=== PATIENT | male | born 1960 | race Caucasian/White ===

== ENCOUNTER 2017-06-29 12:26 | Inpatient (IN) ==
[2017-06-29] MEDS ORDERED: M.V.I.-12 10 ML, FOLIC ACID 1 MG, MAGNESIUM SULFATE 1 GM, THIAMINE 100 MG in NS 1,000 ML IV ONE (13:23)
[2017-06-29] MEDS ORDERED: ATIVAN IV ONE ×3 (13:23→17:25)
[2017-06-29 14:23] LABS: MANUAL DIFF NEEDED? NO
[2017-06-29 14:38] LABS: BASO% 0.2 % (0.0-0.8); HEMATOCRIT 45.4 % (42.0-52.0); HEMOGLOBIN 16.2 g/dL (14.0-18.0); IMM GRAN# 0.03 X1000 (0.0-0.04); IMM GRAN% 0.4 % (0.0-0.5); LYMPH# 0.82 X1000 (1.2-3.4); LYMPH% 10.2 % (20.5-51.1); MCH 35.7 PG (27-31); MCHC 35.7 g/dL (33-37); MONO# 0.46 X1000 (0.11-0.59); MONO% 5.7 % (1.7-9.3); MPV 9.9 FL (7.4-10.4); NEUT% 83.5 % (42.2-75.2); PLT 209 X1000 (130-400); RBC 4.54 XMIL (4.7-6.1)
[2017-06-29 14:47] LABS: UR AMPHETAMINES QUAL NONE DETECTED (NONE DETECT); UR BARBITUATES QUAL NONE DETECTED (NONE DETECT); UR BENZODIAZEPIN QUAL NONE DETECTED (NONE DETECT); UR CANNABINOIDS QUAL NONE DETECTED (NONE DETECT); UR COCAINE QUAL NONE DETECTED (NONE DETECT); UR METHADONE QUAL NONE DETECTED (NONE DETECT); UR OPIATES QUAL NONE DETECTED (NONE DETECT); UR OXYCODONE QUAL NONE DETECTED (NONE DETECT); UR PCP QUAL NONE DETECTED (NONE DETECT)
[2017-06-29 14:48] LABS: AGAP 16; ALBUMIN 4.6 g/dL (3.5-5.0); ALKALINE PHOSPHATASE 60 U/L (32-122); BUN 8 mg/dL (8-22); CHLORIDE 96 mmol/L (98-107); COSMO 274; GOT 146 U/L (10-34); GPT 122 U/L (10-44); POTASSIUM 3.7 mmol/L (3.5-5.1); SODIUM 138 mmol/L (136-145); TCO2 26 mmol/L (25-35); TOTAL BILIRUBIN 0.81 mg/dL (0.20-1.00); TOTAL PROTEIN 7.9 g/dL (6.3-8.3)
[2017-06-29] MEDS ORDERED: LIBRIUM PO ONE (20:26)
[2017-06-29] MEDS ORDERED: VALIUM IV ONE ×2 (20:26→20:47)
[2017-06-29] MEDS ORDERED: SODIUM CHLORIDE 0.9% INJ ONE (22:25)
[2017-06-29] MEDS ORDERED: TYLENOL PO PRN (22:25)
[2017-06-29] MEDS ORDERED: NICODERM PATCH TD ONE (22:25)
[2017-06-29] MEDS: VALIUM IV PRN ×2 (22:38→23:59)
[2017-06-29 22:51] LABS: INR 1.02; PROTIME 10.7 Seconds (9.2-11.7)
[2017-06-29] MEDS: LOVENOX SUBQ SCH (23:06)
[2017-06-29] MEDS: LIORESAL PO SCH (23:06)
[2017-06-29] MEDS: POTASSIUM CHLORIDE 10 MEQ in NS 1,000 ML IV SCH (23:07)
[2017-06-29] MEDS: THERA M PLUS PO SCH (23:07)
[2017-06-30] MEDS: LIBRIUM PO SCH ×4 (02:05→19:22)
[2017-06-30] MEDS: VALIUM IV PRN ×13 (02:07→23:20)
[2017-06-30] MEDS: ZOFRAN IV PRN ×3 (02:31→20:15)
[2017-06-30 04:28] LABS: MANUAL DIFF NEEDED? NO
[2017-06-30 04:41] LABS: HEMATOCRIT 46.4 % (42.0-52.0); HEMOGLOBIN 16.5 g/dL (14.0-18.0); LYMPH# 1.73 X1000 (1.2-3.4); LYMPH% 34.7 % (20.5-51.1); MCH 36.3 PG (27-31); MCHC 35.6 g/dL (33-37); MPV 9.9 FL (7.4-10.4); NEUT% 57.3 % (42.2-75.2); PLT 140 X1000 (130-400); RBC 4.55 XMIL (4.7-6.1)
[2017-06-30] MEDS: POTASSIUM CHLORIDE 10 MEQ in NS 1,000 ML IV SCH (04:44)
[2017-06-30 04:48] LABS: AGAP 14; ALBUMIN 4.1 g/dL (3.5-5.0); ALKALINE PHOSPHATASE 56 U/L (32-122); BUN 8 mg/dL (8-22); CALCIUM 8.2 mg/dL (8.8-10.2); CHLORIDE 99 mmol/L (98-107); COSMO 275; GOT 107 U/L (10-34); GPT 93 U/L (10-44); MAGNESIUM 2.1 mg/dL (1.5-2.7); POTASSIUM 3.2 mmol/L (3.5-5.1); SODIUM 139 mmol/L (136-145); TCO2 26 mmol/L (25-35); TOTAL BILIRUBIN 0.95 mg/dL (0.20-1.00); TOTAL PROTEIN 6.9 g/dL (6.3-8.3)
[2017-06-30] MEDS: LIORESAL PO SCH ×2 (08:00→20:12)
[2017-06-30] MEDS: THERA M PLUS PO SCH ×2 (08:00→20:12)
[2017-06-30] MEDS: PROTONIX IV SCH (08:12)
[2017-06-30] MEDS ORDERED: SODIUM PHOSPHATE 40 MMOL in NS 250 ML IV ONE (08:22)
[2017-06-30] MEDS ORDERED: POTASSIUM CHLORIDE 60 MEQ in NS 500 ML IV ONE (08:25)
[2017-06-30] MEDS ORDERED: POTASSIUM CHLORIDE 20% LIQUID PO ONE (08:43)
[2017-06-30] MEDS ORDERED: THIAMINE IM SCH (09:00)
[2017-06-30] MEDS ORDERED: NEUTRA-PHOS PO ONE (09:12)
[2017-06-30 09:22] LABS: MAGNESIUM 1.9 mg/dL (1.5-2.7)
[2017-06-30] MEDS: NS 1,000 ML IV SCH ×3 (09:45→23:18)
[2017-06-30] MEDS: SYNTHROID PO SCH (09:46)
[2017-06-30] MEDS: SEROQUEL PO SCH ×3 (09:46→20:12)
[2017-06-30] MEDS: THIAMINE 100 MG in NS 50 ML IV SCH (09:52)
[2017-06-30] MEDS ORDERED: SUBOXONE 8 MG/2 MG SL ONE (10:11)
[2017-06-30] MEDS: NEUTRA-PHOS PO SCH ×3 (13:26→20:13)
[2017-06-30] MEDS: SUBOXONE 8 MG/2 MG SL SCH ×2 (14:51→20:13)
[2017-06-30] MEDS: LOVENOX SUBQ SCH (23:18)
[2017-07-01] MEDS: VALIUM IV PRN ×4 (00:20→21:09)
[2017-07-01] MEDS ORDERED: PHENOBARBITAL IV PRN (00:32)
[2017-07-01] MEDS ORDERED: VALIUM IV ONE (00:32)
[2017-07-01] MEDS: PHENOBARBITAL IV PRN ×2 (00:52→05:29)
[2017-07-01] MEDS: LIBRIUM PO SCH ×4 (02:01→19:57)
[2017-07-01 04:58] LABS: URINE CULTURE NEEDED? NO; URINE MICRO REVIEW NEEDED? NO; URINE SOURCE CATH
[2017-07-01 05:07] LABS: BILIRUBIN URINE NEGATIVE (NEGATIVE); BLOOD URINE NEGATIVE (NEGATIVE); COLOR YELLOW; GLUCOSE URINE NEGATIVE (NEGATIVE); LEUKOCYTES URINE NEGATIVE (NEGATIVE); NITRITE URINE NEGATIVE (NEGATIVE); PH URINE 6.5; PROTEIN URINE NEGATIVE (NEGATIVE); SP GRAVITY URINE 1.009; TURBIDITY URINE CLEAR (CLEAR); UROBILINOGEN URINE NORMAL (NORMAL)
[2017-07-01 05:09] LABS: UR EPITHELIAL CELLS <10 /HPF (<10); URINE BACTERIA NEGATIVE /HPF; URINE RBC <10 /HPF (<10); URINE WBC <10 /HPF (<10)
[2017-07-01] MEDS: NS 1,000 ML IV SCH ×3 (05:34→19:56)
[2017-07-01 05:42] LABS: ALBUMIN 3.3 g/dL (3.5-5.0); ALKALINE PHOSPHATASE 50 U/L (32-122); DIRECT BILIRUBIN < 0.20 mg/dL (0.00-0.20); GOT 73 U/L (10-34); GPT 71 U/L (10-44); MAGNESIUM 1.8 mg/dL (1.5-2.7); TOTAL BILIRUBIN 0.43 mg/dL (0.20-1.00); TOTAL PROTEIN 5.8 g/dL (6.3-8.3)
[2017-07-01] MEDS: SEROQUEL PO SCH ×3 (08:05→21:00)
[2017-07-01] MEDS: SYNTHROID PO SCH (08:05)
[2017-07-01] MEDS: THERA M PLUS PO SCH ×2 (08:05→21:00)
[2017-07-01] MEDS: LIORESAL PO SCH ×4 (08:06→17:30)
[2017-07-01] MEDS: NEUTRA-PHOS PO SCH ×4 (08:06→21:00)
[2017-07-01] MEDS: PROTONIX IV SCH (08:09)
[2017-07-01] MEDS: SUBOXONE 8 MG/2 MG SL SCH ×3 (08:09→21:00)
[2017-07-01 08:19] LABS: AGAP 17; BUN 6 mg/dL (8-22); CALCIUM 7.2 mg/dL (8.8-10.2); CHLORIDE 105 mmol/L (98-107); COSMO 284; POTASSIUM 3.5 mmol/L (3.5-5.1); SODIUM 144 mmol/L (136-145); TCO2 22 mmol/L (25-35)
[2017-07-01] MEDS: THIAMINE 100 MG in NS 50 ML IV SCH (09:00)
[2017-07-02] MEDS: LOVENOX SUBQ SCH ×2 (02:08→22:53)
[2017-07-02] MEDS: LIBRIUM PO SCH ×4 (02:08→20:17)
[2017-07-02] MEDS: VALIUM IV PRN ×2 (02:12→08:50)
[2017-07-02] MEDS: NS 1,000 ML IV SCH ×3 (02:13→16:20)
[2017-07-02 05:53] LABS: ALBUMIN 3.3 g/dL (3.5-5.0); ALKALINE PHOSPHATASE 49 U/L (32-122); DIRECT BILIRUBIN < 0.20 mg/dL (0.00-0.20); GOT 69 U/L (10-34); GPT 72 U/L (10-44); MAGNESIUM 1.8 mg/dL (1.5-2.7); TOTAL PROTEIN 5.8 g/dL (6.3-8.3)
[2017-07-02 06:13] LABS: AGAP 11; BUN 5 mg/dL (8-22); CHLORIDE 106 mmol/L (98-107); COSMO 278; POTASSIUM 3.6 mmol/L (3.5-5.1); SODIUM 141 mmol/L (136-145); TCO2 24 mmol/L (25-35)
[2017-07-02] MEDS ORDERED: CALCIUM GLUCONATE 1 GM in NS 50 ML IV ONE (06:29)
[2017-07-02] MEDS ORDERED: SODIUM CHLORIDE 0.9% 10 ML ONE (08:41)
[2017-07-02] MEDS: LIORESAL PO SCH ×3 (08:43→16:14)
[2017-07-02] MEDS: SEROQUEL PO SCH ×4 (08:43→20:17)
[2017-07-02] MEDS: THIAMINE 100 MG in NS 50 ML IV SCH (08:44)
[2017-07-02] MEDS: SUBOXONE 8 MG/2 MG SL SCH ×3 (08:44→20:17)
[2017-07-02] MEDS: THERA M PLUS PO SCH ×2 (08:44→20:17)
[2017-07-02] MEDS: PROTONIX IV SCH (08:44)
[2017-07-02] MEDS: SYNTHROID PO SCH (09:39)
[2017-07-02] MEDS: NEUTRA-PHOS PO SCH ×4 (09:40→20:17)
[2017-07-02] MEDS: PHENOBARBITAL IV PRN ×2 (09:59→16:14)
[2017-07-03] MEDS: NS 1,000 ML IV SCH (01:46)
[2017-07-03] MEDS: LIBRIUM PO SCH ×4 (02:46→22:31)
[2017-07-03 05:57] LABS: AGAP 6; BUN 6 mg/dL (8-22); CALCIUM 8.1 mg/dL (8.8-10.2); CHLORIDE 106 mmol/L (98-107); COSMO 284; POTASSIUM 4.3 mmol/L (3.5-5.1); SODIUM 144 mmol/L (136-145); TCO2 32 mmol/L (25-35)
[2017-07-03 06:39] LABS: URINE CULTURE NEEDED? NO; URINE MICRO REVIEW NEEDED? NO; URINE SOURCE CATH
[2017-07-03 06:48] LABS: BILIRUBIN URINE NEGATIVE (NEGATIVE); BLOOD URINE SMALL (NEGATIVE); COLOR YELLOW; GLUCOSE URINE NEGATIVE (NEGATIVE); LEUKOCYTES URINE NEGATIVE (NEGATIVE); NITRITE URINE NEGATIVE (NEGATIVE); PH URINE 6.5; PROTEIN URINE NEGATIVE (NEGATIVE); SP GRAVITY URINE 1.009; TURBIDITY URINE CLEAR (CLEAR); UROBILINOGEN URINE NORMAL (NORMAL)
[2017-07-03 06:50] LABS: UR EPITHELIAL CELLS <10 /HPF (<10); URINE BACTERIA NEGATIVE /HPF; URINE WBC <10 /HPF (<10)
[2017-07-03 06:53] LABS: ALBUMIN 3.5 g/dL (3.5-5.0); ALKALINE PHOSPHATASE 54 U/L (32-122); DIRECT BILIRUBIN < 0.20 mg/dL (0.00-0.20); GOT 50 U/L (10-34); GPT 67 U/L (10-44); MAGNESIUM 1.8 mg/dL (1.5-2.7); TOTAL BILIRUBIN 0.46 mg/dL (0.20-1.00); TOTAL PROTEIN 6.3 g/dL (6.3-8.3)
[2017-07-03] MEDS: NEUTRA-PHOS PO SCH ×4 (09:06→22:32)
[2017-07-03] MEDS: THIAMINE 100 MG in NS 50 ML IV SCH (09:06)
[2017-07-03] MEDS: PROTONIX IV SCH (09:06)
[2017-07-03] MEDS: SYNTHROID PO SCH (09:07)
[2017-07-03] MEDS: LIORESAL PO SCH ×3 (09:07→17:21)
[2017-07-03] MEDS: SUBOXONE 8 MG/2 MG SL SCH ×3 (09:07→22:31)
[2017-07-03] MEDS: THERA M PLUS PO SCH ×2 (09:08→22:31)
[2017-07-03] MEDS: SEROQUEL PO SCH ×3 (09:08→22:31)
[2017-07-03] MEDS ORDERED: FLOMAX PO SCH (09:45)
[2017-07-03] MEDS ORDERED: VITAMIN B-1 PO SCH (09:45)
[2017-07-03] MEDS: ATIVAN PO PRN ×2 (10:01→14:52)
[2017-07-03] MEDS ORDERED: LABETALOL IV PRN (18:28)
[2017-07-03] MEDS: LOVENOX SUBQ SCH (22:32)
[2017-07-04] MEDS: LIBRIUM PO SCH ×4 (03:20→22:38)
[2017-07-04] MEDS: ATIVAN IV PRN (05:29)
[2017-07-04 07:22] LABS: AGAP 13; BUN 7 mg/dL (8-22); CHLORIDE 99 mmol/L (98-107); COSMO 277; POTASSIUM 4.1 mmol/L (3.5-5.1); SODIUM 140 mmol/L (136-145); TCO2 28 mmol/L (25-35)
[2017-07-04 07:29] LABS: MAGNESIUM 1.7 mg/dL (1.5-2.7)
[2017-07-04] MEDS: SUBOXONE 8 MG/2 MG SL SCH ×3 (10:19→22:38)
[2017-07-04] MEDS: THERA M PLUS PO SCH ×2 (10:21→22:38)
[2017-07-04] MEDS: SYNTHROID PO SCH (10:22)
[2017-07-04] MEDS: LIORESAL PO SCH ×3 (10:22→19:42)
[2017-07-04] MEDS: SEROQUEL PO SCH ×3 (10:22→22:38)
[2017-07-04] MEDS: NEUTRA-PHOS PO SCH ×4 (10:31→22:38)
[2017-07-04] MEDS: LOVENOX SUBQ SCH (22:39)
[2017-07-05] MEDS: LIBRIUM PO SCH ×5 (02:21→23:13)
[2017-07-05] MEDS: ATIVAN IV PRN (07:00)
[2017-07-05 07:32] LABS: AGAP 14; BUN 9 mg/dL (8-22); CALCIUM 9.7 mg/dL (8.8-10.2); CHLORIDE 99 mmol/L (98-107); COSMO 282; POTASSIUM 4.9 mmol/L (3.5-5.1); SODIUM 142 mmol/L (136-145); TCO2 29 mmol/L (25-35)
[2017-07-05] MEDS: THERA M PLUS PO SCH ×2 (08:08→23:13)
[2017-07-05] MEDS: NEUTRA-PHOS PO SCH ×4 (08:08→23:14)
[2017-07-05] MEDS: SUBOXONE 8 MG/2 MG SL SCH ×3 (08:08→23:13)
[2017-07-05] MEDS: SEROQUEL PO SCH ×3 (08:08→23:13)
[2017-07-05] MEDS: SYNTHROID PO SCH (08:08)
[2017-07-05] MEDS: LIORESAL PO SCH ×2 (08:08→13:26)
[2017-07-05] MEDS: LOVENOX SUBQ SCH (23:14)
[2017-07-06] MEDS: ATIVAN IV PRN (00:01)
[2017-07-06] MEDS: LIBRIUM PO SCH ×4 (03:15→20:38)
[2017-07-06 07:47] LABS: AGAP 11; ALBUMIN 3.9 g/dL (3.5-5.0); ALKALINE PHOSPHATASE 57 U/L (32-122); BUN 16 mg/dL (8-22); CALCIUM 9.5 mg/dL (8.8-10.2); CHLORIDE 96 mmol/L (98-107); COSMO 274; GOT 23 U/L (10-34); GPT 37 U/L (10-44); SODIUM 137 mmol/L (136-145); TCO2 30 mmol/L (25-35); TOTAL BILIRUBIN 0.46 mg/dL (0.20-1.00); TOTAL PROTEIN 7.6 g/dL (6.3-8.3)
[2017-07-06] MEDS: THERA M PLUS PO SCH ×2 (08:58→20:39)
[2017-07-06] MEDS: SYNTHROID PO SCH (08:58)
[2017-07-06] MEDS: SEROQUEL PO SCH ×3 (08:58→20:38)
[2017-07-06] MEDS: SUBOXONE 8 MG/2 MG SL SCH ×3 (08:59→20:39)
[2017-07-06] MEDS: NEUTRA-PHOS PO SCH ×5 (08:59→20:43)
[2017-07-06] MEDS: VITAMIN B-1 PO SCH (13:59)
[2017-07-06] MEDS: PROSCAR PO SCH (13:59)
[2017-07-06] MEDS: LOVENOX SUBQ SCH (22:20)
[2017-07-07] MEDS: LIBRIUM PO SCH ×4 (02:12→21:16)
[2017-07-07 07:24] LABS: AGAP 14; BUN 12 mg/dL (8-22); CHLORIDE 94 mmol/L (98-107); COSMO 271; POTASSIUM 3.8 mmol/L (3.5-5.1); SODIUM 136 mmol/L (136-145); TCO2 28 mmol/L (25-35)
[2017-07-07] MEDS: SUBOXONE 8 MG/2 MG SL SCH ×3 (08:46→21:16)
[2017-07-07] MEDS: PROSCAR PO SCH (08:47)
[2017-07-07] MEDS: VITAMIN B-1 PO SCH (08:47)
[2017-07-07] MEDS: NEUTRA-PHOS PO SCH ×4 (08:47→21:18)
[2017-07-07] MEDS: THERA M PLUS PO SCH ×2 (08:47→21:16)
[2017-07-07] MEDS: SEROQUEL PO SCH ×3 (08:47→21:16)
[2017-07-07] MEDS: SYNTHROID PO SCH (08:47)
[2017-07-07] MEDS: ATIVAN IV PRN ×2 (15:47→21:16)
[2017-07-07] MEDS: LOVENOX SUBQ SCH (21:24)
[2017-07-08] MEDS: LIBRIUM PO SCH ×4 (03:15→20:24)
[2017-07-08] MEDS: SEROQUEL PO SCH ×3 (08:48→20:24)
[2017-07-08] MEDS: PROSCAR PO SCH (08:48)
[2017-07-08] MEDS: VITAMIN B-1 PO SCH (08:48)
[2017-07-08] MEDS: THERA M PLUS PO SCH ×2 (08:48→20:24)
[2017-07-08] MEDS: NEUTRA-PHOS PO SCH ×4 (08:48→20:24)
[2017-07-08] MEDS: SUBOXONE 8 MG/2 MG SL SCH ×3 (08:49→20:25)
[2017-07-08] MEDS: SYNTHROID PO SCH (08:49)
[2017-07-08] MEDS: FLOMAX PO SCH (08:49)
[2017-07-08] MEDS: ATIVAN IV PRN (20:25)
[2017-07-09] MEDS: LOVENOX SUBQ SCH (00:20)
[2017-07-09] MEDS: ATIVAN IV PRN (00:20)
[2017-07-09] MEDS: LIBRIUM PO SCH ×2 (01:18→08:16)
[2017-07-09 08:20] VITALS: BP 112/71
[2017-07-09] MEDS: NEUTRA-PHOS PO SCH (09:36)
[2017-07-09] MEDS: SYNTHROID PO SCH (09:36)
[2017-07-09] MEDS: SEROQUEL PO SCH (09:36)
[2017-07-09] MEDS: THERA M PLUS PO SCH (09:36)
[2017-07-09] MEDS: SUBOXONE 8 MG/2 MG SL SCH (09:36)
[2017-07-09] MEDS: PROSCAR PO SCH (09:36)
[2017-07-09] MEDS: FLOMAX PO SCH (09:36)
[2017-07-09] MEDS: VITAMIN B-1 PO SCH (09:36)
== END 2017-07-09 12:40 | disposition home or self-care (01) ==
LOC: ED 12:26 → ICU 22:36 → SUATTDRO 22:36 → 3N 07-03 17:40
PROVIDERS: ATTEND Emergency Medicine